=== PATIENT | female | born 1960 | race Two or more races ===

== ENCOUNTER 2024-09-09 11:19 | Emergency (ER) | payer OTHER, MEDICAID, SELFPAY ==
[2024-09-09] VITALS (8 sets, daily range): BP systolic 117–130; BP diastolic 64–77; PULSE 93–113; RESP 16–96; TEMP 37.3–39.2; O2SAT 97–99; BMI 24.4
--- NOTE | 2024-09-09 12:27 | EKG_ITS ---
[facility] Test Date: 2024-09-09 Pat Name: RAVI WEST Department: Room: - Gender: Female Lubrication Technician: : 1960 Requested By: Ash Hogan Order Number: [id number] Reading MD: Ash Hogan Measurements Intervals Mobile Rate: 103 P: 45 HI: 117 QRS: 24 QRSD: 72 T: 54 QT: 326 QTc: 427 Interpretive Statements SINUS TACHYCARDIA WITH SHORT HI INTERVAL NONSPECIFIC T-WAVE ABNORMALITY ABNORMAL RHYTHM ECG No previous ECG available for comparison /store/S0/[id number].pdf
--- NOTE | 2024-09-09 12:28 | XR_ITS ---
Examination: AP chest single view TECHNIQUE: AP portable upright chest single view Exam date and time: September 09, 2024 1258 hours INDICATIONS: Sepsis alert today. FINDINGS: Suspicious for subtle cavitary parenchymal disease in the left upper lobe Normal heart size Right lung clear IMPRESSION: Suspicious for cavitary parenchymal disease in the left upper lobe, consider CT chest without contrast follow-up
--- NOTE | 2024-09-09 12:30 | EDNOTE_ITS ---
<Statement entered by Jamila Wick MD - 09/10/24 18:38> As co-signing physician, I was present and available for consult prn. I concur with the plan and care as documented by the midlevel provider. ED General RME/HPI General Chief complaint: General Adult/Misc Complain Stated complaint: BLOOD IN STOOL AND WEAKNESS Time Seen by Provider: 09/09/24 11:50 Arrival date/time: 09/09/24 11:19 RME / HPI RME / HPI narrative: 64-year-old female patient with significant history of hypertension diabetes mellitus Parkinson disease, was brought in by family for evaluation regarding not feeling well. Patient is just been having generalized body weakness, neck pain, fever, chest pain, body aches, severity moderate. Last night patient was also noted to have bright red blood in the stool. Denies any abdominal pain. In the triage patient was noted to be having fever and tachycardic, sepsis alert was initiated right away. Related Data Home Medications ?Medication ?Instructions ?Recorded ?Confirmed losartan 25 mg tablet 25 mg PO QDAY 10/31/2102/09 metformin 1,000 mg tablet 1,000 mg PO BID 10/31/21 pravastatin 40 mg tablet 40 mg PO QDAY 10/31/2102/09 sertraline 100 mg tablet 100 mg PO QDAY 10/31/2101/18 sitagliptin phosphate 50 mg tablet 50 mg PO QDAY 10/3102/09/22 (Januvia) Previous Rx's ?Medication ?Instructions ?Recorded metoclopramide HCl 10 mg tablet 10 mg PO Q6H #120 tabs 02/21/22 nirmatrelvir 300 mg (150 mg See Rx Instructions PO .CO MPLEX 02/11/23 x2)-ritonavir 100 mg tablet,dose #30 tabs pack (Paxlovid) Allergies Allergy/AdvReac Type Severity Reaction Status Date / Time No Known Allergies Allergy Verified 09/09/24 11:25 Review of Systems Review of Systems Narrative Review of Systems: Review of system reviewed and within normal limits except mentioned in HPI ED Exam Narrative Physical exam: VITAL SIGNS: Reviewed. GENERAL APPEARANCE: Alert and interactive, follows commands, no acute distress, HEAD AND FACE: Non-traumatic. ENT: PERRL, pink conjunctivitis, eyelid no trauma, Mucous membrane moist. NECK: Supple, nontender, no nuchal rigidity. CHEST: No tenderness, no crepitus, no paradoxical movement, no retractions. LUNGS: Clear, well ventilated, symmetric, no rales, no wheezing, no ronchi, no stridor, good breath sounds bilaterally. HEART: Regular rate, regular rhythm, no murmur, no gallops. ABDOMEN: Soft, positive bowel sounds, nondistended, no guarding, nontender, no rebound, no masses, RECTAL: Deferred. GENITAL: Deferred. NEUROLOGICAL: Gross motor function intact sensory function intact, Appropriate for age. MUSCULOSKELETAL: low back nontender, full range of motion. EXTREMITIES: Nontender, full range of motion. SKIN: Color pink, dry, no rash, no lacerations, no abrasions, no contusions. LYMPHATICS: Deferred. Course Quality Measures none Orders Category Date Time Status Bedside COVID-19 Antigen Test NOW Care 09/09/24 12:33 Active Bedside Influenza A&B Antigen Test NOW Care 09/09/24 12:33 Completed Box Hinge And Lock Attacher STAT Care 09/09/24 12:27 Active Continuous Pulse Oximetry STAT Care 09/09/24 12:27 Completed EKG (ED ONLY) *Do not use* NOW Care 09/09/24 12:27 Completed In and Out Catheter X1PRN Care 09/09/24 12:27 Active Insert IV NOW Care 09/09/24 12:27 Active NPO STAT Care 09/09/24 12:27 Active Strict Intake and Output Routine Care 09/09/24 12:[address] chest wo con Stat Exams 09/09/24 16:07 Completed EKG (ED Only) Stat Exams 09/09/24 12:27 Draft XR chest 1V SEPSIS PROTOCOL Stat Exams 09/09/24 12:28 Completed B-Type Natriuretic Peptide Stat Lab 09/09/24 13:12 Completed Blood Culture (Lab) Stat Lab 09/09/24 13:12 Received CBC Stat Lab 09/09/24 13:12 Completed Comprehensive Metabolic Panel Stat Lab 09/09/24 13:12 Completed LDH (Lactate Dehydrogenase) Stat Lab 09/09/24 13:12 Completed Lactate (Lactic Acid) Stat Lab 09/09/24 13:12 Completed Lipase Stat Lab 09/09/24 13:12 Completed Magnesium Stat Lab 09/09/24 13:12 Completed Partial Thromboplastin Time Stat Lab 09/09/24 13:12 Completed Path Review Blood Smear Stat Lab 09/09/24 13:12 Completed Phosphorous Stat Lab 09/09/24 13:12 Completed Procalcitonin Stat Lab 09/09/24 13:12 Completed Prothrombin Time with INR Stat Lab 09/09/24 13:12 Completed Troponin I Stat Lab 09/09/24 13:12 Completed Urinalysis Stat Lab 09/09/24 13:15 Completed Urine Culture Stat Lab 09/09/24 13:15 Received Acetaminophen Tab [Tylenol ES Tab] Med 09/09/24 12:33 Discontinued 1,000 mg PO X1 ONE Sodium Chloride 0.9% 1000 ml [Ns] 1,000 ml Med 09/09/24 12:33 Discontinued IV 999 mls/hr cefTRIAXone [Rocephin] 1,000 mg Med 09/09/24 12:34 Discontinued SODIUM CHLORIDE 0.9% (Popper) [NS 0.9% (Popper)] 50 ml IV X1 Oxygen Delivery NOW RT 09/09/24 12:27 Active Vital Signs Vital signs: Vital Signs Temperature 101.9 F H 09/09/24 11:44 Pulse Rate 113 H 09/09/24 11:44 Respiratory Rate 16 09/09/24 11:44 Blood Pressure 130/77 09/09/24 11:44 Pulse Oximetry (%) 97 09/09/24 11:44 Oxygen Delivery Method Room Air 09/09/24 11:44 [facility] Patient data External records reviewed:: None Clinical information provided by:: none Social determinants that could affect healthcare access:: none Patient has the following chronic illnesses:: Hypertension diabetes, parkinsonism How is presenting disease/condition affected by chronic disease/condition?: e xacerbated by Evaluation data The following diagnostics were reviewed and interpreted by me:: lab results, radiology exam(s) and EKG tracing(s) Lab and/or radiology exams considered but not ordered:: None Interpretation Summary: See results in [facility] Medications Medications considered but not ordered:: None Medication administrations:: Medication Administration History Discontinued Medications Acetaminophen (Acetaminophen 500 Mg Tablet) 1,000 mg PO X1 ONE Stop: 09/09/24 12:34 Last Admin: 09/09/24 17:29 Dose: 1,000 mg Documented By: Sodium Chloride (Ns) 1,000 mls @ 999 mls/hr IV .Q1H1M ONE Stop: 09/09/24 13:33 Last Admin: 09/09/24 18:09 Dose: 999 mls/hr Documented By: JAI Ceftriaxone Sodium 1,000 mg/ (Sodium Chloride) 50 mls @ 100 mls/hr IV X1 ONE Stop: 09/09/24 13:03 Last Admin: 09/09/24 18:09 Dose: 100 mls/hr Documented By: JAI Ceftriaxone IV, IV fluids and Tylenol Consultations Consultation(s) initiated? (list below): No Diagnosis Differential Diagnosis ED Complaint MDM: Fever, sepsis, viral infection Most likely diagnosis given after review of the tests above:: Viral infection Admission Indicated Admission indicated?: not indicated Explain why admission is indicated or not indicated:: Stable Admission Request Was there a request for admission?: No Disposition Plan Disposition Plan: Discharge Discharge Attestation Discharge Attestation: The patient and all family members were given an opportunity to ask questions and understood the discharge instructions. Discharge instructions specifically effects, indications for sooner follow up or return to the emergency department, and the expected course of current diagnosis. Patient condition: Stable Medical Decision Making MDM Narrative MDM Narrative: 64-year-old female patient with significant history of hypertension diabetes mellitus Parkinson disease, was brought in by family for evaluation regarding not feeling well. Patient is just been having generalized body weakness, neck pain, fever, chest pain, body aches, severity moderate. Last night patient was also noted to have bright red blood in the stool. Denies any abdominal pain. In the triage patient was noted to be having fever and tachycardic, sepsis alert was initiated right away. EKG showed sinus tachycardia, ventricular to 103 bpm, no ST segment elevation or depression noted. Laboratory workup is significant for leukopenia of 1.1 urinalysis no UTI CMP unremarkable CT of the chest showed Stellate pulmonary nodule 8 mm left upper lobe Minor linear scarring in the medial left upper lobe No cavitary lesion depicted No active pneumonia Primary hepatocellular disease versus cirrhosis Cholelithiasis Incompletely visualized hepatosplenomegaly Consider hepatobiliary sonography follow-up Results discussed with the patient and family. Prior to discharge patient told me that she is feeling better, no fever noted patient is not having any symptoms. Patient appears nontoxic and hemodynamically stable. Patient discharged home and instructed to follow-up with primary care provider in 24 to 48 hours. Instructed to return to the emergency department immediately if worsening of symptoms Differential Diagnosis Differential Diagnosis: Fever, sepsis, viral infection Lab Data 09/09/24 13:12 09/09/24 13:12 Labs: Lab Results 09/09/24 09/09/24 Range/Units 13:12 13:15 WBC 1.1 L (3.6-11.0) Thou/mm3 RBC 3.66 L (4.00-5.20) Miln/mm3 Hgb 11.0 L (12.0-16.0) g/dL Hct 31.3 L (36.0-46.0) % MCV 86 (80-100) fL MCH 30.1 (25.0-35.0) pg MCHC 35.1 (31.0-37.0) g/dl RDW Std Deviation 44.6 (36.4-46.3) fL Plt Count 40 L (140-440) Thou/mm3 Neut % (Auto) 78 (37-80) % Lymph % (Auto) 7 L (10-50) % [place] % (Auto) 14 H (0-12) % Eos % (Auto) 0 (0-10) % Baso % (Auto) 0 (0-2.5) % Neut # (Auto) 0.8 L (1.8-7.7) Thou/mm3 Lymph # (Auto) 0.1 L (1.0-4.8) Thou/mm3 [place] # (Auto) 0.2 (0.0-0.8) Thou/mm3 Eos # (Auto) 0.0 (0.0-0.5) Thou/mm3 Baso # (Auto) 0.0 (0.0-0.2) Thou/mm3 Immature Gran # (Auto) 0.02 H (0.00-0.00) Thou/mm3 Absolute Nucleated RBC 0.00 (0.00-0.00) Thou/mm3 Immature Gran % 2 H (0-0) % Nucleated RBC % 0 (0) /100 WBC Smear Path Review Sent to Pathologist PT 11.7 (9.0-12.2) Seconds INR 1.1 (0.9-1.3) APTT 25.1 (22.0-36.0) Seconds Sodium 137 (136-145) mMol/L Potassium 4.6 (3.4-5.1) mMol/L Chloride 100 (98-107) mMol/L Carbon Dioxide 24.8 (20.0-31.0) mMol/L Anion Gap 12 (7-16) BUN 10 (9-23) mg/dL Creatinine 0.8 (0.6-1.3) mg/dL Estim Creat Clear Calc 49.9 L (>60) mL/min eGFR > 60 (60 - ) See Note BUN/Creatinine Ratio 13 (12-20) Ratio Glucose 192 H (74-106) mg/dL Calculated Osmolality 277 (275-295) Lactic Acid 1.8 (0.4-2.0) mMol/L Calcium 10.6 (8.3-10.6) mg/dL Corrected Calcium 10.6 H (8.5-10.1) mg/dL Phosphorus 2.6 (2.4-5.1) mg/dL Magnesium 1.4 L (1.6-2.6) mg/dL Total Bilirubin 0.7 (0.3-1.2) mg/dL AST 57 H (0-34) U/L ALT 30 (10-49) U/L Alkaline Phosphatase 75 (46-116) U/L Lactate Dehydrogenase 232 (120-246) U/L Troponin I < 0.002 (0.0-0.045) ng/mL B-Natriuretic Peptide 27 (0-100) pg/mL Total Protein 8.7 H (5.7-8.2) gm/dL Albumin 5.2 H (3.4-4.8) gm/dL Globulin 3.5 (2.3-3.5) gm/dL Albumin/Globulin Ratio 1.5 (1.2-2.2) Lipase 95 H (12-53) U/L Procalcitonin 0.10 (0.0-0.49) ng/ml Ur Collection Type Clean Catch Urine Color Yellow (Lt Yel-Yel) Urine Clarity Clear (Clear/Hazy) Urine pH 8.5 H (5.0-7.0) Ur Specific [place] 1.023 (1.001-1.035) Urine Protein Trace (Neg - Trace) Urine Glucose (UA) Negative (Negative) Urine Ketones 1+ A (Negative) Urine Blood Negative (Negative) Urine Nitrite Negative (Negative) Urine Bilirubin Negative (Negative) Urine Urobilinogen (Auto) 2.0 (0.0-1.0) mg/dL Ur Leukocyte Esterase Negative (Negative) Urine RBC 0 (0-3) /hpf Urine WBC 1 (0-5) /hpf Ur Squamous Epith Cells 3 (0-5) /hpf Urine Bacteria 4+ A (None) Misc Test Result Platelets confirmed Discharge Plan Plan Patient Disposition: HOME (Self Care) Disposition Comment: Stable Prescriptions/Referrals Prescriptions/Med Rec: No Action pravastatin 40 mg Tablet 40 mg PO QDAY sertraline 100 mg Tablet 100 mg PO QDAY metformin 1,000 mg Tablet 1,000 mg PO BID losartan 25 mg Tablet 25 mg PO QDAY Januvia 50 mg Tablet 50 mg PO QDAY metoclopramide HCl 10 mg tablet 10 mg PO Q6H Qty: 120 0RF Rx Instructions: take every 6 hours Paxlovid 300 mg (150 mg x 2)-100 mg tablets,dose pack See Rx Instructions .ROUTE .COMPLEX Qty: 30 0RF Rx Instructions: take TWO 150 mg tablets of nirmatrelvir with ONE 100 mg tablet of ritonavir twice daily for 5 days Referrals: Dwayne Michaud [Primary Care Provider] - In 1 week Problem List Clinical Impression: Viral infection Patient/Caregiver Discharge Instructions Discharge Activity: activity as tolerated Education Materials: ED Viral Syndrome (Adult) Additional Instructions: Thank you for the opportunity for serving you today. You are stable for discharged . You are advised to: Follow-up with your PCP in 1 to 2 days Return to ED for worsening of symptoms Increase oral fluids Take [id number]-ywr-[id number] Tylenol or Motrin as needed Print Language: Portuguese Stand Alone Forms: Francesca Award Info., Work/School Release, Patient Portal Info Letter HILARIA/KENNETH Supervising Physician HILARIA/KENNETH Supervising Physician: MD Shamika
[2024-09-09 13:19] LABS: Lactate (Lactic Acid) 1.8 mMol/L (0.4-2.0)
[2024-09-09 13:25] LABS: Collection Type, Urine Clean Catch; RBC,Urine 0 /hpf (0-3)
[2024-09-09 13:26] LABS: Basophils % (Auto) 0 % (0-2.5); Eosinophils % (Auto) 0 % (0-10); Hematocrit 31.3 % (36.0-46.0); Immature Granulocytes % (Auto) 2 % (0-0); Immature Granulocytes Auto 0.02 Thou/mm3 (0.00-0.00); Lymphocytes # (Auto) 0.1 Thou/mm3 (1.0-4.8); Lymphocytes % (Auto) 7 % (10-50); Mean Corpuscular HGB Conc 35.1 g/dl (31.0-37.0); Mean Corpuscular Hemoglobin 30.1 pg (25.0-35.0); Mean Corpuscular Volume 86 fL (80-100); Monocytes # (Auto) 0.2 Thou/mm3 (0.0-0.8); Monocytes % (Auto) 14 % (0-12); Neutrophils # (Auto) 0.8 Thou/mm3 (1.8-7.7); Neutrophils % (Auto) 78 % (37-80); Nucleated Red Blood Cell % 0 /100 WBC (0); RDW Standard Deviation 44.6 fL (36.4-46.3); Red Blood Count 3.66 Miln/mm3 (4.00-5.20)
[2024-09-09 13:37] LABS: INR 1.1 (0.9-1.3); Partial Thromboplastin Time 25.1 Seconds (22.0-36.0); Prothrombin Time 11.7 Seconds (9.0-12.2)
[2024-09-09 13:42] LABS: Bacteria,Urine 4+; Bilirubin,Urine Negative (Negative); Blood,Urine Negative (Negative); Clarity,Urine Clear (Clear/Hazy); Color,Urine Yellow (Lt Yel-Yel); Glucose, Urine Negative (Negative); Ketones,Urine 1+ (Negative); Leukocyte Esterase,Urine Negative (Negative); Nitrite,Urine Negative (Negative); PH,Urine 8.5 (5.0-7.0); Protein,Urine Trace (Neg - Trace); Specific Gravity,Urine 1.023 (1.001-1.035); Squamous Epithelial Cell,Urine 3 /hpf (0-5); WBC,Urine 1 /hpf (0-5)
[2024-09-09 13:48] LABS: B-Type Natriuretic Peptide 27 pg/mL (0-100)
[2024-09-09 14:00] LABS: Platelet Count 40 Thou/mm3 (140-440); White Blood Count 1.1 Thou/mm3 (3.6-11.0)
[2024-09-09 14:23] LABS: Alanine Aminotransferase 30 U/L (10-49); Albumin, Serum 5.2 gm/dL (3.4-4.8); Albumin/Globulin Ratio 1.5 (1.2-2.2); Alkaline Phosphatase 75 U/L (46-116); Anion Gap 12 (7-16); Aspartate Amino Transferase 57 U/L (0-34); BUN/Creatinine Ratio 13 Ratio (12-20); Bilirubin,Total 0.7 mg/dL (0.3-1.2); Blood Urea Nitrogen 10 mg/dL (9-23); Calcium 10.6 mg/dL (8.3-10.6); Calcium (Corrected) 10.6 mg/dL (8.5-10.1); Carbon Dioxide 24.8 mMol/L (20.0-31.0); Chloride 100 mMol/L (98-107); Creatinine (Component) 0.8 mg/dL (0.6-1.3); Estimated Creatinine Clearance 49.9 mL/min (>60); Globulin 3.5 gm/dL (2.3-3.5); Glucose 192 mg/dL (74-106); LDH (Lactate Dehydrogenase) 232 U/L (120-246); Lipase 95 U/L (12-53); Magnesium 1.4 mg/dL (1.6-2.6); Osmolality,Calculated 277 (275-295); Phosphorous 2.6 mg/dL (2.4-5.1); Potassium 4.6 mMol/L (3.4-5.1); Sodium 137 mMol/L (136-145); Total Protein 8.7 gm/dL (5.7-8.2); Troponin I < 0.002 ng/mL (0.0-0.045); eGFR > 60 See Note
--- NOTE | 2024-09-09 16:07 | XR_ITS ---
Examination: CT chest, without intravenous contrast. Sagittal and coronal 2-D reconstructions. Exam date and time: September 08, 2024 1431 hrs. Indications: Sepsis alert,, cavitary parenchymal disease left upper lobe on chest x-ray today CTDI:vol (mGy) 8.82 DLP: (mGycm) 381 Technique: Multiple 3.0 mm axial sections of the chest to been obtained. Bone and lung density settings are obtained. Sagittal and coronal 2-D reconstructions have been obtained. Low dose protocols were performed. One or more of the following dose reduction techniques were used; automated exposure control, adjustment of the mA and/or KV according to patient size, use of iterative reconstruction technique. Findings: AP dimension ascending thoracic aorta 24 mm Pulmonary artery is not enlarged No paratracheal tracheobronchial or bronchopulmonary adenopathy Stellate pulmonary nodule 8 mm left upper lobe image 92 Minor linear scarring in the medial left upper lobe image 85 No cavitary lesion detected No pneumonia or pulmonary edema Liver is irregular in contour Both liver and spleen appear enlarged but incompletely visualized Gallstones No pancreatic mass Impression: Stellate pulmonary nodule 8 mm left upper lobe Minor linear scarring in the medial left upper lobe No cavitary lesion depicted No active pneumonia Primary hepatocellular disease versus cirrhosis Cholelithiasis Incompletely visualized hepatosplenomegaly Consider hepatobiliary sonography follow-up
[2024-09-09] MEDS: ACETAMINOPHEN 500 MG TABLET 1000 MG PO (17:29)
[2024-09-09 17:52] LABS: Slide Review Platelets confirmed
[2024-09-09 17:55] LABS: Path Review Blood Smear Sent to Pathologist
[2024-09-09] MEDS: SODIUM CHLORIDE 0.9% 1000 ML 1,000 ML 999 ML IV (18:09)
[2024-09-09] MEDS: cefTRIAXone 1,000 MG in SODIUM CHLORIDE 0.9% (Popper) 50 ML 100 MG IV (18:09)
--- NOTE | 2024-09-09 18:22 | PC.NURSE ---
PT BROUGHT IN NOT FEELING WELL, ASSUMED CARE AROUND 1740, PT WAS PLACED IN ROOM. COVID AND FLU NEGATIVE, DENIES ANY DISCOMFORT AT THIS TIME. FLUIDS AND ABX INFUSING. FAMILY AT BEDSIDE ATTENTIVE TO PT.
--- NOTE | 2024-09-09 19:36 | PC.NURSE ---
Samira FLOW TRADER in to talk to pt/dtr with regards to plan of care.
== END 2024-09-09 19:50 | disposition home or self-care (01) ==
PROVIDERS: Nurse Practitioner Family; Emergency Provider Emergency Medicine; PCP Family Medicine
DX: B34.9 Viral infection, unspecified (principal); G20.A1 Parkinson's disease without dyskinesia, without mention of fluctuations; E11.9 Type 2 diabetes mellitus without complications; I10 Essential (primary) hypertension; K92.1 Melena; R00.0 Tachycardia, unspecified
CPT/HCPCS: 36415; 71045; 71250; 80053; 81001; 83605; 83615; 83690; 83735; 83880; 84100; 84145; 84484; 85025; 85610; 85730; 87040; 87077; 87086; 87186; 87400; 87811; 93005; 96365; 99284; J0696; J7030; J7050; A9270

== ENCOUNTER → 2024-11-01 | Outpatient (CLI) | payer OTHER, MEDICAID, SELFPAY | END | disposition home or self-care (01) | LOC: COPL 09:40 | PROVIDERS: PCP Family Medicine | DX: E55.9 Vitamin D deficiency, unspecified (principal); M81.0 Age-related osteoporosis without current pathological fracture | CPT/HCPCS: 36415; 82306 ==

== ENCOUNTER → 2024-11-28 | Outpatient (CLI) | payer OTHER, MEDICAID, SELFPAY ==
--- NOTE | 2024-11-28 14:42 | XR_ITS ---
Examination: Cervical spine 6 views TECHNIQUE: AP, lateral, standing lateral flexion, standing lateral extension, JOSUE, [place] 6 views Exam date and time: November 28, 2024 1558 hours INDICATIONS: Neck pain 10 years. FINDINGS: Adequate alignment cervical vertebral bodies. No cervical fracture. Intact odontoid. Advanced disc narrowing C6-C7, mild reduced range of motion between flexion and extension IMPRESSION: Advanced degenerative disc disease C6-C7
== END | disposition home or self-care (01) ==
LOC: SDIM 14:25
PROVIDERS: Referring Provider Internal Medicine Rheumatology; Visit Provider Internal Medicine Rheumatology
DX: M50.323 Other cervical disc degeneration at C6-C7 level (principal)
CPT/HCPCS: 72052